=== PATIENT | female | born 1970 | race Caucasian/White ===

== ENCOUNTER → 2017-02-13 | Outpatient (CLI) | payer BC ==
[~2017-02-13] MED LIST: CLARITIN 10MG T10 MG PO; LEVOTHROID0.05 MG PO; LISINOPRIL 5MG T5 MG NG; LISINOPRIL 5MG T5 MG PO; PHENERGAN 25MG.25 M1 PO; PROPRANOLOL HCL20 MG PO; STAHIST1 TER PO
--- NOTE | 2017-02-13 16:17 | RADIOLOGY REPORT PS360 ---
CHEST(2 VIEWS-NOT PORTABLE) HISTORY: SOB, MID THORACIC PAIN ORDERING PHYSICIAN: FELICITAS KEANE PATIENT AGE: 46 years COMPARISON: 05/29/2010 FINDINGS: The cardiomediastinal silhouette and pulmonary vascularity are within normal limits. The lungs are clear without infiltrates, suspicious nodules, or pleural effusions. No acute bony abnormalities. There is evidence of old granulomatous disease. Calcified paratracheal lymph node is noted and there is calcified granuloma in the anterior clear space IMPRESSION: Negative chest, no acute finding, no change with no acute finding., Old granulomatous disease
== END ==
LOC: RAD 15:21
DX: R06.02 Shortness of breath (principal); M54.6 Pain in thoracic spine

== ENCOUNTER → 2017-03-08 | Outpatient (CLI) | payer BC ==
[~2017-03-08] MED LIST changes: +ARMOUR THYROID15 M1 PO; +ARMOUR THYROID30 M1 PO; +ATENOLOL25 M1 PO; +CIPRO 500MG TA500 MG PO; +FLAGYL500 M1 PO; +MONTELUKAST SOD10 MG PO; +NORCO 325 MG-51 TAB PO
== END ==
LOC: RT 09:38
DX: R06.02 Shortness of breath (principal); J45.909 Unspecified asthma, uncomplicated

== ENCOUNTER → 2017-07-27 | Outpatient (CLI) | payer BC ==
[2017-07-28 08:40] LABS: Folate (Folic Acid) 7.3 ng/mL (>3.0); RA Latex Turbid. <10.0 IU/mL (0.0-13.9); Vitamin B12 697 pg/mL (211-946)
[2017-07-30 14:40] LABS: Antinuclear Antibodies, IFA Negative (.)
[2017-07-31 03:36] LABS: Vitamin B6 8.1 ug/L (2.0-32.8)
== END ==
LOC: LAB 09:53
PROVIDERS: Psychiatry & Neurology Neurology
DX: H53.2 Diplopia (principal); R53.83 Other fatigue; M62.81 Muscle weakness (generalized)